=== PATIENT | male | born 1960 | race Caucasian/White ===

== ENCOUNTER 2020-12-02 18:26 | Inpatient (IN) | payer SELFPAY ==
[~2020-12-02] VITALS: Ht 170 cm; Wt 102.1 kg
[2020-12-02] MEDS ORDERED: ASPIRIN 81 MG CHEW (CHILDREN'S ASA) PO STA (18:31)
[2020-12-02] MEDS ORDERED: ONDANSETRON 4 MG/2 ML (SDV) Z0FRAN IVP STA (18:38)
[2020-12-02] MEDS ORDERED: meTOprolol 5 MG/5 ML (LOPRESSOR) VIAL IV STA (18:39)
[2020-12-02] MEDS ORDERED: HEParin 1000 UNIT/ML (10ML VIAL) FOR BOLUS IV ONE (18:41)
[2020-12-02 18:43] LABS: BASOPHILS % (AUTO) 1 % (0-10); EOSINOPHILS % (AUTO) 1 % (0-10); HEMATOCRIT 49 % (40-54); HEMOGLOBIN 17.2 G/DL (13.3-17.7); LYMPHOCYTES % (AUTO) 10 % (12-44); MEAN CORPUSCULAR HEMOGLOBIN 32 PG (25-34); MEAN CORPUSCULAR HGB CONC 35 G/DL (32-36); MEAN CORPUSCULAR VOLUME 91 FL (80-99); MEAN PLATELET VOLUME 9.6 FL (7.4-10.4); MONOCYTES % (AUTO) 5 % (0-12); NEUTROPHILS % (AUTO) 83 % (42-75); PLATELET COUNT 238 10^3/uL (130-400); WHITE BLOOD COUNT 18.3 10^3/uL (4.3-11.0)
[2020-12-02 18:44] LABS: BASOPHILS # (AUTO) 0.1 10^3/uL (0.0-0.1); EOSINOPHILS # (AUTO) 0.1 10^3/uL (0.0-0.3); LYMPHOCYTES # (AUTO) 1.9 X 10^3 (1.0-4.0); MONOCYTES # (AUTO) 0.9 X 10^3 (0.0-1.0); NEUTROPHILS # (AUTO) 15.2 X 10^3 (1.8-7.8)
[2020-12-02] MEDS ORDERED: HEParin DRIP 25000 UNIT/500ML 500 ML IV ONE (18:45)
[2020-12-02] MEDS ORDERED: NITROGLYCERIN 0.4 MG SL TABS BTL 25'S SL PRN (18:45)
--- NOTE | 2020-12-02 18:46 | ED Chest Pain ---
General Chief Complaint: Chest Pain Stated Complaint: CHEST PAIN; LT ARM PAIN Source: patient History of Present Illness Date Seen by Provider: Dec 02, 2020 Time Seen by Provider: 18:28 Initial Comments 60-year-old male presenting with chest pain and nausea. He does come in from chopping wood and was feeling this discomfort numbness chest around 1600. He was not improving with rest and when he tried to lay down to take a nap and was not going away. He came into the emergency department to be evaluated. He did have some nausea and felt like he was given throw up. He denies having a history of heart problems or high blood pressure in the past. He does not take any medications and does not follow with any primary provider. Allergies and Home Medications Allergies Coded Allergies: No Known Drug Allergies (Unverified , 12/02/20) Patient Home Medication List Home Medication List Reviewed: Yes Review of Systems Review of Systems Constitutional: No chills, No fever EENTM: No Symptoms Reported Respiratory: Shortness of Air Cardiovascular: See HPI Gastrointestinal: See HPI Genitourinary: No Symptoms Reported Musculoskeletal: no symptoms reported Skin: no symptoms reported Psychiatric/Neurological: No Symptoms Reported Past Kkgkxhx-Yygsim-Ujkpjl Hx Past Med/Social Hx: Reviewed Nursing Past Med/Soc Hx Patient Social History Alcohol Use: Denies Use Recreational Drug Use: No Smoking Status: Former Smoker 2nd Hand Smoke Exposure: No Recent Foreign Travel: No Contact w/Someone Who Travel: No Recent Hopitalizations: No Physical Abuse: No Sexual Abuse: No Mistreated: No Fear: No Seasonal Allergies Seasonal Allergies: No Past Medical History Surgeries: No Respiratory: No Cardiac: No Neurological: No Genitourinary: No Gastrointestinal: No Musculoskeletal: No Endocrine: No HEENT: No Cancer: No Psychosocial: No Integumentary: No Blood Disorders: No Adverse Reaction/Blood Tranf: No Physical Exam Vital Signs Vital Signs - First Documented 12/02/20 18:38 Temp 36.3 Pulse 93 Resp 19 B/P (MAP) 166/104 (124) Pulse Ox 97 Capillary Refill : Less Than 3 Seconds Height, Weight, BMI Height: '" Weight: lbs. oz. kg; BMI Method: General Appearance: WD/WN, Mild Distress HEENT: PERRL/EOMI, Pharynx Normal Neck: Full Range of Motion, Normal Inspection, Non Tender, Supple Respiratory: Chest Non Tender, Lungs Clear, Normal Breath Sounds, No Accessory Muscle Use, No Respiratory Distress Cardiovascular: Regular Rate, Rhythm, Normal Peripheral Pulses Gastrointestinal: No Pulsatile Mass, Soft Extremity: Normal Capillary Refill, No Pedal Edema Neurologic/Psychiatric: Alert, Oriented x3 Skin: Normal Color, Warm/Dry Progress/Results/Core Measures Results/Orders Lab Results Laboratory Tests Test 12/02/20 18:34 Range/Units My Orders Orders - CNYDI HAYS MD Cbc With Automated Diff (12/02/20 18:30) Magnesium (12/02/20 18:30) Chest 1 View Ap/Pa Only (12/02/20 18:30) Ekg Tracing (12/02/20 18:30) Comprehensive Metabolic Panel (12/02/20 18:30) Protime With Inr (12/02/20 18:30) Partial Thromboplastin Time (12/02/20 18:30) O2 (12/02/20 18:30) Monitor-Rhythm Ecg Trace Only (12/02/20 18:30) Ed Iv/Invasive Line Start (12/02/20 18:30) Lipase (12/02/20 18:30) Troponin I Fs (12/02/20 18:30) Probnp Fs (12/02/20 18:30) Aspirin Chewable Tablet (Baby Aspirin Ch (12/02/20 18:31) Nitroglycerin 0.4 Mg Btl 25's (Nitrostat (12/02/20 18:45) Ondansetron Injection (Zofran Injectio (12/02/20 18:38) Metoprolol Tartrate Injection (Lopressor (12/02/20 18:39) Heparin Drip 68929 Unit/500ml (Heparin (12/02/20 18:45) Heparin (Bolus Per Protocol) (Heparin (B (12/02/20 18:41) Ticagrelor Tablet (Brilinta Tablet) (12/02/20 18:51) Nitroglycerin Ointment (Nitrobid Ointme (12/02/20 19:00) Medications Given in ED Current Medications Medications Dose Ordered Sig/Lis Route Start Time Stop Time Status Last Admin Dose Admin Nitroglycerin 0.4 mg NEEDED PRN SL 12/02/20 18:45 12/02/20 18:39 0.4 MG Vital Signs/I&O 12/02/20 18:38 Temp 36.3 Pulse 93 Resp 19 B/P (MAP) 166/104 (124) Pulse Ox 97 Progress Progress Note : Progress Note electrocardiogram demonstrates a this ST elevation IA. Patient was given aspirin, heparin, Zofran, nitroglycerin, metoprolol. A call was placed to Dr. Victoria with cardiology and to activate the Medical Insurance Clerk. patient's pain was resolved with treatment. Dr. Victoria did want pt to get Brilinta prior to transfer as well. Initial ECG Impression Date: Dec 02, 2020 Initial ECG Impression Time: 18:32 Initial ECG Rate: 101 Initial ECG Rhythm: Normal Sinus Initial ECG Comparisson: No Previous ECG Available Comment sinus tachycardia with heart rate of 101 beats for minute. Acute lateral infarct and ST elevation for inferior infarct. KS interval 150 ms. QT interval 352 ms with a QTc interval 457 ms. No prior tracing available for comparison. Diagnostic Imaging Diagonstic Imaging: Xray Plain Films/CT/US/NM/MRI: chest Comments [facility], [place] NAME: [facility] REC#: [id number] PT STATUS: REG ER : 1960 PHYSICIAN: CYNDI HAYS MD ADMIT DATE: 12/02/20/ER FS Draft Date of Exam:12/02/20 CHEST 1 VIEW AP/PA ONLY INDICATION: Left-sided chest pain. EXAMINATION: Frontal chest was obtained at 6:40 p.m. FINDINGS: Heart and mediastinal silhouette are normal in appearance. The lungs are clear. There is no pneumothorax or pleural fluid. IMPRESSION: Negative chest. Dictated on workstation # [id number] Dict: 12/02/20 1859 Trans: 12/02/20 1904 [facility] [id number] Interpreted by: RODNEY CARRILLO MD Electronically signed by: Departure Communication (Admissions) Time/Spoke to Admitting Phy: 19:00 d/w Dr. Cervantes so that he was aware of pt for admit once Dr. Victoria finishes in the Medical Insurance Clerk with him. Time/Spoke to Consulting Phy: 18:46 d/w Dr. Victoria for cardiology and he requested Brilinta on the patient in addition to treatment so far. will take pt to cath lab nurse in [place]. Impression Primary Impression: STEMI (ST elevation myocardial infarction) Qualified Codes: I21.3 - ST elevation (STEMI) myocardial infarction of unspecified site Additional Impression: Chest pain Qualified Codes: I25.9 - Chronic ischemic heart disease, unspecified Disposition: 30 STILL A PATIENT Condition: Critical Admissions Decision to Admit Reason: Admit from ER (General) Decision to Admit/Date: Dec 02, 2020 Time/Decision to Admit Time: 18:46 Departure-Patient Inst. Referrals: NO,LOCAL PHYSICIAN (PCP/Family) Primary Care Physician CYNDI HAYS MD Dec 02, 2020 18:46
[2020-12-02] MEDS ORDERED: TICAGRELOR 90 MG TABLET (BRILINTA) PO STA (18:51)
[2020-12-02 18:55] LABS: BAND NEUTROPHILS 3 %; LYMPHOCYTES % (MANUAL) 9 %; MONOCYTES % (MANUAL) 3 %; NEUTROPHILS % (MANUAL) 85 %
[2020-12-02 18:56] LABS: BASOPHILS % (MANUAL) 0 %; EOSINOPHILS % (MANUAL) 0 %; PROTHROMBIN TIME PATIENT 13.1 SEC (12.2-14.7); RBC MORPH NORMAL; TOXIC GRANULATION/VACUOLAZATIO 2+
[2020-12-02] MEDS ORDERED: NITROGLYCERIN 2% OINT 1 GM UNIT DOSE PACKET TOP ONE (19:00)
[2020-12-02 19:02] LABS: SODIUM 135 MMOL/L (135-145)
[2020-12-02 19:03] LABS: ALANINE AMINOTRANSFERASE 32 U/L (0-55); ALBUMIN 4.8 GM/DL (3.2-4.5); ALKALINE PHOSPHATASE 94 U/L (40-136); BILIRUBIN,TOTAL 1.8 MG/DL (0.1-1.0); BUN/CREATININE RATIO 15; CALCIUM 9.6 MG/DL (8.5-10.1); CARBON DIOXIDE 24 MMOL/L (21-32); CHLORIDE 98 MMOL/L (98-107); CREATININE SERUM 0.82 MG/DL (0.60-1.30); GFR ESTIMATED > 60; GLUCOSE 250 MG/DL (70-105); LIPASE 17 U/L (8-78); MAGNESIUM 1.8 MG/DL (1.6-2.4); POTASSIUM 3.5 MMOL/L (3.6-5.0); TOTAL PROTEIN 8.1 GM/DL (6.4-8.2)
--- NOTE | 2020-12-02 19:05 | Diagnostic Imaging Report ---
INDICATION: Left-sided chest pain. EXAMINATION: Frontal chest was obtained at 6:40 p.m. FINDINGS: Heart and mediastinal silhouette are normal in appearance. The lungs are clear. There is no pneumothorax or pleural fluid. IMPRESSION: Negative chest. Dictated by: Dictated on workstation # [id number]
[2020-12-02] MEDS ORDERED: MIDAZOLAM 5 MG/5 ML (VERSED) VIAL ONE (19:12)
[2020-12-02] MEDS ORDERED: LIDOCAINE 1% INJ 20 ML 20 ML VIAL ONE (19:12)
[2020-12-02] MEDS ORDERED: NITRO DRIP 25000 MCG/D5W 250 ML IV ONE (19:13)
[2020-12-02] MEDS ORDERED: NS IV 1000 ML 1,000 ML ONE (19:13)
[2020-12-02] MEDS ORDERED: HEParin (CATH LAB) 2,000 ML IV ONE (19:13)
[2020-12-02] MEDS ORDERED: HEParin 1000 UNIT/ML (10ML VIAL) FOR BOLUS ONE (19:13)
[2020-12-02] MEDS ORDERED: fentaNYL INJECTION 100 MCG/2 ML AMP ONE (19:13)
[2020-12-02] MEDS ORDERED: EPTIFIBATIDE BOLUS 20 ML IV ONE (20:24)
[2020-12-02] MEDS ORDERED: NS (IVPB) 250 ML ONE (20:34)
[2020-12-02] MEDS ORDERED: niCARdipine 25 MG/10 ML (CARDENE) AMP IV ONE (20:34)
[2020-12-02] MEDS ORDERED: EPTIFIBATIDE DRIP 100 ML IV ONE (20:38)
--- NOTE | 2020-12-02 21:27 | Coronary Angiography & PCI ---
Coronary Angiography & PCI DATE OF PROCEDURE: 12/02/20 INDICATION: acute inferior lateral STEMI PREOPERATIVE DIAGNOSIS: acute inferior lateral STEMI POSTOPERATIVE DIAGNOSIS: acute inferior lateral STEMI, PCI to left circumflex artery and mid RCA. HISTORY: this is a 60-year-old gentleman who has history of hypertension and hyperlipidemia. He denies diabetes and smoking. Chest pain for 3 hours. EKG showed inferior lateral STEMI. primary PCI was recommended. PROCEDURES PERFORMED: 1.Coronary angiography. 2.Left heart catheterization. 3.PCI to the left circumflex artery with drug-eluting stent. 4. PCI to the mid RCA with drug-eluting stent. COMPLICATIONS: None. SPECIMENS: None. ESTIMATED BLOOD LOSS: 10 mL ANESTHESIA: Conscious sedation ANTICOAGULATION: IV heparin CONTRAST: 210 mL. FLUOROSCOPY: 22.9 minutes. FLOUROSCOPY DOSE: 2602 mgy. PROCEDURE DETAILS: The patient is a 60 male and was brought to the prestressed concrete laborer after informed consent was taken. All the risks and complications were explained in detail; this included the risk of bleeding, vascular damage, stroke, IN and even . The patient was draped and prepped in the usual sterile fashion. Access was gained in the right femoral artery with a 6 Divehi sheath. Coronary angiography and left heart catheterization done with a JR4, JL4 and pigtail catheter. FINDINGS: 1.Left main: Patent. 2.LAD: athero-ectasia with sgxa-kn-rancaujl diffuse disease. 3.Left circumflex artery: significant athero-ectasia with aneurysmal segments. Mid left circumflex artery has subtotal occlusion with significant clot burden. 4.RCA: diffuse athero-ectasia with severe long mid RCA stenosis. 5.Left heart catheterization: LVEDP 17 mmHg. LVEF 40 percent. RECOMMENDATIONS: 1. PCI to the mid left circumflex artery is recommended. 2. PCI to the mid RCA is recommended. INTERVENTION DETAILS: EBU 4.0 guide catheter, whisper extra-support wire and IV heparin. Patient was given aspirin and Brilinta bolus prior to the angiogram. ACT was 229 seconds. We crossed the lesion in the mid left circumflex artery with the whisper wire. The tip of the wire was placed in the distal segment. Balloon angioplasty was done with a 2.0 x 12mm balloon. Door to balloon time of 32 minutes. significant clot burden therefore aspiration thrombectomy was done. We then placed a 3.5 x 23 mm Xience Kaylee drug-eluting stent at 16 yuri. IC Nicardipine 500 was also given. double bolus Integrilin followed by infusion was started. JR4 guide catheter, whisper extra-support wire. Significant tortuosity in the proximal RCA. We crossed the lesion with the wire however were not able to cross with the stent. while trying to advance the stent, the wire came back into the aorta. We therefore changed the guide to AR 1. We took an new whisper wire. The lesion was crossed. The tip was placed in the distal artery. Balloon dilatation was done with a 2.5 x 20 mm balloon. We then placed a stent 3.5 x 33 mm Xience Kaylee SINTIA at 16 yuri. Excellent results. minx closure to the RFA.Patient tolerated the procedure well and did not have any complications. He was transferred to the ICU with stable hemodynamics. CONCLUSIONS: 1. acute inferior lateral STEMI with PCI to the left circumflex artery and mid RCA with drug-eluting stents. 2. Significant aneurysmal segments noted. Will likely require oral anticoagulation. 3. Currently on aspirin and Brilinta. Shireen Victoria MD, FACP, FACC, [facility] Interventional Cardiology Eleanor VICTORIA MD Dec 02, 2020 21:27
--- NOTE | 2020-12-02 21:27 | Consultation-Cardiology ---
HPI-Cardiology Cardiology Consultation: Date of Consultation 12/02/20 Date of Admission Attending Physician Eleanor Victoria MD Admitting Physician Susannah,Local Physician Consulting Physician Eleanor VICTORIA MD HPI: Time Seen by a Provider: 21:26 Chief Complaint: chest pain this is a 60-year-old gentleman with history of hypertension and hyperlipidemia. He presented with 3 hour history of chest pain associated with nausea and left arm numbness. Moderate intensity. Did not improve with rest. No shortness of breath. Remote history of smoking. Review of Systems-Cardiology Review of Systems Constitutional: As described under HPI; No As described under HPI, No no sympt oms reported, No chills, No fever, No lightheadedness Eyes: No As described under HPI, No no symptoms reported, No blindness, No blurred vision, No contact lenses, No drainage, No decreased acuity, No foreign body sensation, No pain, No vision change Ears/Nose/Throat: No As described under HPI, No no symptoms reported, No chronic hearing loss, No ear discharge, No ear pain, No nasal drainage, No ulcerations Respiratory: No no symptoms reported; As described under HPI; No As described under HPI, No cough, No orthopnea, No shortness of breath, No SOB with excertion Cardiovascular: No no symptoms reported; As described under HPI; No As described under HPI; chest pain; No edema, No irregular heart rate, No lightheadedness, No palpitations Gastrointestinal: No no symptoms reported, No As described under HPI, No abdomen distended, No abdominal pain, No blood streaked bowels, No constipation, No diarrhea, No nausea, No vomiting; nausea/vomiting/diarrhea; No stool coloration changes Genitourinary: No As described under HPI, No burning, No dysuria, No discharge, No frequency, No flank pain, No hematuria, No urgency Skin: No rash, No skin related problems, No ulcerations Psychiatric/Neurological: No anxiety, No depression, No seizure, No focal weakness, No syncope Hematologic: No bleeding abnormalities KAO-Utawvn-Dbgdtq Hx Patient Social History Alcohol Use: Denies Use Recreational Drug Use: No Smoking Status: Former Smoker 2nd Hand Smoke Exposure: No Recent Foreign Travel: No Recent Infectious Disease Expo: No Hospitalization with Isolation: Denies Past Medical History PMH As described under Assessment. Allergies and Home Medications Allergies Coded Allergies: No Known Drug Allergies (Unverified , 12/02/20) Patient Home Medication List Home Medication List Reviewed: Yes Physical Exam-Cardiology Physical Exam Vital Signs/I&O 12/02/20 12/02/20 18:38 19:05 Temp 36.3 Pulse 93 107 Resp 19 21 B/P (MAP) 166/104 (124) 135/98 Pulse Ox 97 94 Capillary Refill : Less Than 3 Seconds Constitutional: appears stated age, AAO x 3; No apparent distress; well- developed, well-nourished HEENT: PERRL; No discharge; hearing is well preserved, oral hygience is good; No ulceration, No xanthelasmas are seen Neck: No carotid bruit; carotid pulses are 2 + bilaterally Respiratory: chest is bilaterally symmetric, lungs clear to auscultation Cardiovascular: regular rate-rhythm, S1 and S2 Gastrointestinal: soft, audible bowel sounds; No spleenomegaly Rectal: deferred Extremities: No clubbing, No cyanosis, No significant edema Neurologic/Psychiatric: no motor/sensory deficits, alert, normal mood/affect, oriented x 3, power is 5/5 both on sides Skin: normal color; No rash, No ulcerations Data Review Labs Laboratory Tests 12/02/20 18:34: White Blood Count 18.3H, Red Blood Count 5.38, Hemoglobin 17.2, Hematocrit 49, Mean Corpuscular Volume 91, Mean Corpuscular Hemoglobin 32, Mean Corpuscular Hemoglobin Concent 35, Red Cell Distribution Width 12.3, Platelet Count 238, Mean Platelet Volume 9.6, Immature Granulocyte % (Auto) 0, Neutrophils (%) (Auto) 83H, Lymphocytes (%) (Auto) 10L, Monocytes (%) (Auto) 5, Eosinophils (%) (Auto) 1, Basophils (%) (Auto) 1, Neutrophils # (Auto) 15.2H, Lymphocytes # (Auto) 1.9, Monocytes # (Auto) 0.9, Eosinophils # (Auto) 0.1, Basophils # (Auto) 0.1, Immature Granulocyte # (Auto) 0.1, Neutrophils % (Manual) 85, Lymphocytes % (Manual) 9, Monocytes % (Manual) 3, Eosinophils % (Manual) 0, Basophils % (Manual) 0, Band Neutrophils 3, Toxic Granulation 2+, Dohle Bodies SLIGHT, Blood Morphology Comment NORMAL, Prothrombin Time 13.1, INR Comment 1.0, Activated Partial Thromboplast Time 26, Sodium Level 135, Potassium Level 3.5L, Chloride Level 98, Carbon Dioxide Level 24, Anion Gap 13, Blood Urea Nitrogen 12, Creatinine 0.82, Estimat Glomerular Filtration Rate > 60, BUN/Creatinine Ratio 15, Glucose Level 250H, Calcium Level 9.6, Corrected Calcium , Magnesium Level 1.8, Total Bilirubin 1.8H, Aspartate Amino Transf (AST/SGOT) 30, Alanine Aminotransferase (ALT/SGPT) 32, Alkaline Phosphatase 94, Troponin I < 0.30, Pro-B-Type Natriuretic Peptide 71.7, Total Protein 8.1, Albumin 4.8H, Lipase 17 ECG Impression ECG Initial ECG Rhythm: Normal Sinus Initial ECG Impression: Acute AK A/P-Cardiology Assessment/Admission Diagnosis acute inferior lateral STEMI, Hyperlipidemia, Hypertension Plan acute inferior lateral STEMI, coronary angiography revealed significant athero- ectasia/aneurysmal dilatation in all 3 vessels. Culprit vessel is left circumflex artery in the midsegment with significant thrombus burden. Treated with aspiration thrombectomy and drug-eluting stent. mid RCA was also treated with a drug-eluting stent. Currently on aspirin and Brilinta. However patient would likely require oral anticoagulation as well. Will defer to Dr. Hoffman. Hypertension: Beta willie and lisinopril. hyperlipidemia: High-dose statin therapy. Dr. Hoffman to take over cardiology service tomorrow Thank you for your consultation. Please call me if you have any questions. Shireen Victoria MD, FACP, FACC, FSCAI, FHRS, CCDS Interventional Cardiology Cardiac Electrophysiology Vascular Medicine and Endovascular Interventions Clinical Quality Measures AMI/AHF: ASA po Prior to arrival: Eleanor Nava MD Dec 02, 2020 21:27
[2020-12-02] MEDS ORDERED: PATIENT MAY USE OWN MEDS, ALL PO SCH (21:30)
--- NOTE | 2020-12-02 21:31 | Cardiac Procedure Note-CS/ASA ---
Pre-Procedure Note Pre-Op Procedure Note H&P Reviewed The H&P was reviewed, patient examined and no changes noted. Date H&P Reviewed: Dec 02, 2020 Time H&P Reviewed: 19:45 Conscious Sedation Pre-Proced Time 19:45 ASA Score 3 For ASA 3 and 4: Consider anesthesia and medical clearance. Also, for patients with a history of failed moderate sedation consider anesthesia. Airway Lungs Heart ASA score ASA 1: a normal healthy patient ASA 2: a patient with a mild systemic disease (mid diabetes, controlled hypertension, obesity ASA 3: a patient with a severe systemic disease that limits activity (angina, COPD, prior Myocardial infarction) ASA 4: a patient with an incapacitating disease that is a constant threat to life (CHF, renal failure) ASA 5: a moribund patient not expected to survive 24 hrs. (ruptured aneurysm) ASA 6: a declared brain- patient whose organs are being harvested. For emergent operations, add the letter E after the classification Mallampati Classification Grade 1 Sedation Plan Analgesia, Amnesia, Plan communicated to team members, Discussed options with patient/fam, Discussed risks with patient/fam The patient is an appropriate candidate to undergo the planned procedure, sedation, and anesthesia. The patient immediately re-assessed prior to indication. Eleanor KENNY MD Dec 02, 2020 21:31
[2020-12-02] MEDS: NS IV 1000 ML 1,000 ML IV SCH (23:13)
--- NOTE | 2020-12-03 01:06 | NUR ---
THIS RN NOTIFIED TELE-ICU OF PATIENT'S INCREASING BP, SBP IN 160-170'S AND DBP IN 110'S. NEW ORDER RECEIVED, SEE EMAR AND ORDER HX.
[2020-12-03] MEDS ORDERED: morphine INJ 10 MG/ML 1ML (SYR OR VIAL) IVP STA (01:20)
--- NOTE | 2020-12-03 02:55 | NUR ---
THIS RN NOTIFIED TELE-ICU OF PATIENT'S INCREASING BP, SBP IN 160-170'S AND DBP IN 110'S. NEW ORDER RECEIVED, SEE EMAR AND ORDER HX.
[2020-12-03] MEDS ORDERED: meTOproloL SUCCINATE 50 MG (TOPROL XL) TAB PO ONE (02:59)
[2020-12-03] MEDS: meTOproloL SUCCINATE 50 MG (TOPROL XL) TAB PO SCH ×2 (03:05→09:06)
[2020-12-03 03:23] LABS: BASOPHILS # (AUTO) 0.1 10^3/uL (0.0-0.1); BASOPHILS % (AUTO) 1 % (0-10); EOSINOPHILS % (AUTO) 0 % (0-10); HEMATOCRIT 46 % (40-54); HEMOGLOBIN 15.3 g/dL (13.3-17.7); LYMPHOCYTES # (AUTO) 2.3 10^3/uL (1.0-4.0); LYMPHOCYTES % (AUTO) 20 % (12-44); MEAN CORPUSCULAR HEMOGLOBIN 31 pg (25-34); MEAN CORPUSCULAR HGB CONC 33 g/dL (32-36); MEAN CORPUSCULAR VOLUME 94 fL (80-99); MEAN PLATELET VOLUME 9.8 fL (9.0-12.2); MONOCYTES # (AUTO) 0.9 10^3/uL (0.0-1.0); MONOCYTES % (AUTO) 8 % (0-12); NEUTROPHILS # (AUTO) 7.9 10^3/uL (1.8-7.8); NEUTROPHILS % (AUTO) 71 % (42-75); PLATELET COUNT 203 10^3/uL (130-400); WHITE BLOOD COUNT 11.1 10^3/uL (4.3-11.0)
[2020-12-03 03:44] LABS: CHLORIDE 101 MMOL/L (98-107)
[2020-12-03 03:45] LABS: POTASSIUM 3.8 MMOL/L (3.6-5.0); SODIUM 135 MMOL/L (135-145)
[2020-12-03 03:46] LABS: CALCIUM 8.8 MG/DL (8.5-10.1); GLUCOSE 317 MG/DL (70-105)
[2020-12-03 03:48] LABS: CARBON DIOXIDE 18 MMOL/L (21-32)
[2020-12-03 03:50] LABS: CREATININE SERUM 0.95 MG/DL (0.60-1.30); GFR ESTIMATED > 60; PHOSPHORUS 3.6 MG/DL (2.3-4.7)
[2020-12-03 03:51] LABS: BUN/CREATININE RATIO 11
[2020-12-03 03:52] LABS: MAGNESIUM 1.9 MG/DL (1.6-2.4)
--- NOTE | 2020-12-03 06:03 | Pulmonary Consultation ---
History of Present Illness History of Present Illness Date Seen by Provider: Dec 03, 2020 Time Seen by Provider: 06:02 Date of Admission Allergies and Home Medications Allergies Coded Allergies: No Known Drug Allergies (Unverified , 12/02/20) Past Aoypmue-Fkjrcx-Pvsdej Hx Past Med/Social Hx: Reviewed Nursing Past Med/Soc Hx Patient Social History Alcohol Use: Denies Use Recreational Drug Use: No Smoking Status: Former Smoker 2nd Hand Smoke Exposure: No Recent Foreign Travel: No Contact w/Someone Who Travel: No Recent Infectious Disease Expo: No Recent Hopitalizations: No Physical Abuse: No Sexual Abuse: No Mistreated: No Fear: No Seasonal Allergies Seasonal Allergies: No Past Medical History Surgeries: No Respiratory: No Cardiac: No Neurological: No Genitourinary: No Gastrointestinal: No Musculoskeletal: No Endocrine: No HEENT: No Cancer: No Psychosocial: No Integumentary: No Blood Disorders: No Adverse Reaction/Blood Tranf: No Review of Systems Time Seen by Provider: 06:02 Sepsis Event Evaluation Height, Weight, BMI Height: '" Weight: lbs. oz. kg; BMI Method: Exam Exam Vital Signs Date Time Temp Pulse Resp B/P (MAP) Pulse Ox O2 Delivery O2 Flow Rate FiO2 12/03/20 04:00 92 18 147/89 (108) 92 Room Air 12/03/20 04:00 36.6 12/03/20 03:00 86 18 165/102 (123) 98 Room Air 12/03/20 02:00 79 18 155/104 (121) 98 Room Air 12/03/20 01:05 36.0 12/03/20 01:00 83 16 140/94 (109) 96 Room Air 12/03/20 00:00 75 16 139/102 (114) 96 Room Air 12/02/20 23:06 36.6 12/02/20 23:00 81 16 139/102 (114) 93 Room Air 12/02/20 22:00 78 16 132/91 (105) 96 Room Air 12/02/20 22:00 95 Room Air 12/02/20 21:56 74 12/02/20 21:55 35.7 79 16 112/91 (98) 95 Room Air 12/02/20 19:05 107 21 135/98 94 12/02/20 18:38 36.3 93 19 166/104 (124) 97 I & O 12/03/20 06:59 Intake Total 480 ml Output Total 1050 ml Balance -570 ml Height & Weight Height: '" Weight: lbs. oz. kg; BMI Method: General Appearance: WD/WN, Mild Distress HEENT: PERRL/EOMI, Pharynx Normal Neck: Full Range of Motion, Normal Inspection, Non Tender, Supple Respiratory: Chest Non Tender, Lungs Clear, Normal Breath Sounds, No Accessory Muscle Use, No Respiratory Distress Cardiovascular: Regular Rate, Rhythm, Normal Peripheral Pulses Capillary Refill: Greater Than 3 Seconds Extremity: Normal Capillary Refill, No Pedal Edema Neurologic/Psychiatric: Alert, Oriented x3 Skin: Normal Color, Warm/Dry Results Lab Laboratory Tests 12/02/20 18:34 12/03/20 03:12 Assessment/Plan Assessment/Plan STEMI s/p cath with stent placement -Cardiology following HTN -Lopressor -Lisinopril -Add PRN hydralazine Leukocytosis - probably reactive Metabolic anion gapped acidosis - monitor -Check ALPA MOORE DO Dec 03, 2020 06:02
[2020-12-03] MEDS ORDERED: hydrALAZINE (APESOLINE) 20 MG/ML VIAL IV PRN (06:15)
--- NOTE | 2020-12-03 07:40 | Diagnostic Imaging Report ---
INDICATION: STEMI, chest pain COMPARISON: 12/02/2020 FINDINGS: Single view of the chest demonstrates slight stable cardiac enlargement. Lungs are clear. There is no pneumothorax. The osseous structures are unremarkable. IMPRESSION: Stable cardiac enlargement without pulmonary edema or acute infiltrate Dictated by: Dictated on workstation # [id number]
[2020-12-03] MEDS ORDERED: LACTATED RINGERS 1,000 ML IV ONE (08:18)
[2020-12-03] MEDS ORDERED: LACTATED RINGERS 1,000 ML IV SCH (08:30)
[2020-12-03] MEDS ORDERED: meTOproloL SUCCINATE 50 MG (TOPROL XL) TAB PO SCH (09:00)
[2020-12-03] MEDS ORDERED: ASPIRIN E.C. 81 MG (ECOTRIN) TAB PO SCH (09:00)
[2020-12-03] MEDS ORDERED: lisINopril 10 MG (PRINIVIL) TABLET PO SCH (09:00)
[2020-12-03] MEDS ORDERED: TICAGRELOR 90 MG TABLET (BRILINTA) PO SCH (09:00)
[2020-12-03] MEDS: NS IV 1000 ML 1,000 ML IV SCH (09:06)
[2020-12-03] MEDS ORDERED: CLOPIDOGREL 300 MG (PLAVIX) TABLET PO ONE (11:00)
--- NOTE | 2020-12-03 11:02 | Cardiology Discharge Summary ---
Discharge Summary Hospital Course Problems Reviewed?: Yes Hospital Course Date of Admission: Dec 02, 2020 at 22:02 Admission Diagnosis : Family Physician/Provider: No,Local Physician Date of Discharge: 12/03/20 Discharge Diagnosis: [ Acute ST elevation myocardial infarction Coronary artery disease Hypertension Hyperlipidemia] Hospital Course: [ Acute ST elevation myocardial infarctions status post emergency cardiac catheterization and deployment of [address] Victoria on December 02, 2020, had a Kaylee 3.5 x 23 in the circumflex artery and 3.5 x 33 in the right coronary artery with excellent results, required nicardipine due to slow flow post intervention. Doing well at this time, no chest pain, EKG returned to normal, groin is healing well, educated in length about compliance with medication, does not have prescription plan, I'll switch him to Plavix due to the cost Hypertension, poorly controlled, started on lisinopril and Toprol, continue to monitor Hyperlipidemia, started on Lipitor 80 mg daily I will arrange for follow-up as an outpatient] Labs and Pending Lab Test: Laboratory Tests 12/02/20 18:34: White Blood Count 18.3H, Red Blood Count 5.38, Hemoglobin 17.2, Hematocrit 49, Mean Corpuscular Volume 91, Mean Corpuscular Hemoglobin 32, Mean Corpuscular Hemoglobin Concent 35, Red Cell Distribution Width 12.3, Platelet Count 238, Mean Platelet Volume 9.6, Immature Granulocyte % (Auto) 0, Neutrophils (%) (Auto) 83H, Lymphocytes (%) (Auto) 10L, Monocytes (%) (Auto) 5, Eosinophils (%) (Auto) 1, Basophils (%) (Auto) 1, Neutrophils # (Auto) 15.2H, Lymphocytes # (Auto) 1.9, Monocytes # (Auto) 0.9, Eosinophils # (Auto) 0.1, Basophils # (Auto) 0.1, Immature Granulocyte # (Auto) 0.1, Neutrophils % (Manual) 85, Lymphocytes % (Manual) 9, Monocytes % (Manual) 3, Eosinophils % (Manual) 0, Basophils % (Manual) 0, Band Neutrophils 3, Toxic Granulation 2+, Dohle Bodies SLIGHT, Blood Morphology Comment NORMAL, Prothrombin Time 13.1, INR Comment 1.0, Activated Partial Thromboplast Time 26, Sodium Level 135, Potassium Level 3.5L, Chloride Level 98, Carbon Dioxide Level 24, Anion Gap 13, Blood Urea Nitrogen 12, Creatinine 0.82, Estimat Glomerular Filtration Rate > 60, BUN/Creatinine Ratio 15, Glucose Level 250H, Calcium Level 9.6, Corrected Calcium , Magnesium Level 1.8, Total Bilirubin 1.8H, Aspartate Amino Transf (AST/SGOT) 30, Alanine Aminotransferase (ALT/SGPT) 32, Alkaline Phosphatase 94, Troponin I < 0.30, Pro-B-Type Natriuretic Peptide 71.7, Total Protein 8.1, Albumin 4.8H, Lipase 17 12/03/20 03:12: White Blood Count 11.1H, Red Blood Count 4.88, Hemoglobin 15.3, Hematocrit 46, Mean Corpuscular Volume 94, Mean Corpuscular Hemoglobin 31, Mean Corpuscular Hemoglobin Concent 33, Red Cell Distribution Width 12.3, Platelet Count 203, Mean Platelet Volume 9.8, Immature Granulocyte % (Auto) 0, Neutrophils (%) ( Auto) 71, Lymphocytes (%) (Auto) 20, Monocytes (%) (Auto) 8, Eosinophils (%) (Auto) 0, Basophils (%) (Auto) 1, Neutrophils # (Auto) 7.9H, Lymphocytes # (Auto) 2.3, Monocytes # (Auto) 0.9, Eosinophils # (Auto) 0.0, Basophils # (Auto) 0.1, Immature Granulocyte # (Auto) 0.0, Sodium Level 135, Potassium Level 3.8, Chloride Level 101, Carbon Dioxide Level 18L, Anion Gap 16H, Blood Urea Nitrogen 10, Creatinine 0.95, Estimat Glomerular Filtration Rate > 60, BUN/Creatinine Ratio 11, Glucose Level 317H, Calcium Level 8.8, Magnesium Level 1.9, Troponin I 7.678*H, Phosphorus Level 3.6 12/03/20 07:25: Lactic Acid Level 2.43*H 12/03/20 09:36: Lactic Acid Level 3.67*H Home Meds Active Toprol Xl (Metoprolol Succinate) 100 Mg Tab.er.24h 100 Mg PO DAILY Aspirin EC (Aspirin) 81 Mg Tablet.dr 81 Mg PO DAILY Lisinopril 10 Mg Tablet 10 Mg PO DAILY@0900 Atorvastatin Calcium 80 Mg Tablet 80 Mg PO HS Clopidogrel (Clopidogrel Bisulfate) 75 Mg Tablet 75 Mg PO DAILY Assessment/Pt DC Instructions Arrangement for follow-up as an outpatient Educated in length about compliance with medication taking aspirin and Plavix Discharge Physical Examination Allergies: Coded Allergies: No Known Drug Allergies (Unverified , 12/02/20) General Appearance: No Apparent Distress, WD/WN HEENT: PERRL/EOMI, TMs Normal, Normal ENT Inspection, Pharynx Normal Respiratory: Chest Non Tender, Lungs Clear, Normal Breath Sounds, No Accessory Muscle Use, No Respiratory Distress Cardiovascular: Regular Rate, Rhythm, No Edema, No Gallop, No JVD, No Murmur, Normal Peripheral Pulses Gastrointestinal: Normal Bowel Sounds, No Organomegaly, No Pulsatile Mass Extremity: Normal Capillary Refill, Normal Inspection Skin: Normal Color, Warm/Dry Neurologic/Psychiatric: Alert, Oriented x3 Clinical Quality Measures Admission Status Admission Status: Inpatient Order (span 2 midnights) Reason for Inpatient Admission: Acute ST elevation myocardial infarct AMI/AHF: ASA po Prior to arrival: No DVT/VTE Risk/Contraindication: Risk Factor Score Per Nursin RFS Level Per Nursing on Admit: 4+=Very High ALFONZO LEMOS MD Dec 03, 2020 11:02
[2020-12-03] MEDS ORDERED: ATOR80TA76 PO (11:05)
[2020-12-03] MEDS ORDERED: CLOP75TA28 PO (11:05)
[2020-12-03] MEDS ORDERED: LISI10TA2 PO (11:05)
[2020-12-03] MEDS ORDERED: METO100T6 PO (11:05)
[2020-12-03] MEDS ORDERED: ASPI-1238 PO (11:05)
--- NOTE | 2020-12-03 12:12 | NUR ---
Spoke with Dr. Burnett regarding lactic acids and conversation with Dr. Hoffman. Per Dr. Burnett, pt OK to discharge home per Dr. Hoffman medication recommendations.
--- NOTE | 2020-12-03 13:00 | NUR ---
PT AMBULATED AROUND THE UNIT. GROIN ASSESSED WITH NO COMPLICATIONS NOTED. DRESSING TO GROIN SITE REMOVED AND BANDAID APPLIED.
[2020-12-03 14:34] VITALS: BP 144/100
--- NOTE | 2020-12-03 14:34 | NUR ---
PATIENT DISCHARGED TO HOME WITH ALL PERSONAL BELONGINGS. PT HAS NO COMPLAINTS OR QUESTIONS/CONCERNS AT DISCHARGE. ALL INFORMATION GIVEN TO PATIENT. EDUCATED REGARDING GROIN MANAGEMENT AT HOME, VOICED UNDERSTANDING. VERIFIED WITH [facility] IN [place] THAT THEY HAVE THE CORRECT RX FOR PATIENT. HE STATES HE WILL GO PICK THEM UP TODAY. PT VOICES NO FURTHER CONCERNS. TRANSPORTED VIA W/C TO FRONT ENTRANCE WHERE FAMILY WAS WAITING. PT AMBULATED TO VEHICLE WITHOUT DIFFICULTIES.
[2020-12-04] MEDS ORDERED: CLOPIDOGREL 75 MG (PLAVIX) TABLET PO SCH (09:00)
== END 2020-12-03 14:34 | disposition home or self-care (01) | DRG 247 ==
LOC: ER FS 18:29 → CATH 19:41 → ICU 22:00 → CATH 22:02 → ICU 22:02
PROVIDERS: ADMIT Internal Medicine Interventional Cardiology; ATTEND Internal Medicine Interventional Cardiology
PROC: 027135Z Dilation of Coronary Artery, Two Arteries with Two Drug-eluting Intraluminal Devices, Percutaneous Approach (ICD-10-PCS; principal; 2020-12-02)
PROC: 02C03ZZ Extirpation of Matter from Coronary Artery, One Artery, Percutaneous Approach (ICD-10-PCS; 2020-12-02)
PROC: 4A023N7 Measurement of Cardiac Sampling and Pressure, Left Heart, Percutaneous Approach (ICD-10-PCS; 2020-12-02)
PROC: B2151ZZ Fluoroscopy of Left Heart using Low Osmolar Contrast (ICD-10-PCS; 2020-12-02)
DX: I21.19 ST elevation (STEMI) myocardial infarction involving other coronary artery of inferior wall (principal); E87.2 Acidosis; I25.10 Atherosclerotic heart disease of native coronary artery without angina pectoris; I10 Essential (primary) hypertension; E78.5 Hyperlipidemia, unspecified; Z87.891 Personal history of nicotine dependence
CPT/HCPCS: 36415; 71045; 80048; 80053; 83605; 83690; 83735; 83880; 84100; 84484; 85007; 85025; 85027; 85610; 85730; 93005; 93041; 93306; 93458

== ENCOUNTER 2021-12-29 08:50 | Outpatient (RCR) | payer SELFPAY ==
[2021-12-28 09:15] VITALS: BP 159/96
[~2021-12-29] VITALS: Ht 172.7 cm; Wt 102.1 kg
[~2021-12-29 08:50] MED LIST: ASPI-1238 PO; ATOR80TA76 PO; CLOP75TA28 PO; LISI10TA25 PO; METO100T6 PO
[2021-12-29 09:25] VITALS: BP 144/92
== END 2021-12-29 10:00 | disposition home or self-care (01) ==
LOC: SDC 08:50
PROVIDERS: ATTEND Surgery
DX: Z01.89 Encounter for other specified special examinations (principal)
CPT/HCPCS: 99212

== ENCOUNTER → 2022-03-05 | Outpatient (CLI) | payer OTHER ==
[~2022-03-05] VITALS: Ht 170 cm; Wt 70.0 kg
[~2022-03-05] MED LIST changes: +CATHETER FLUSH 10 ML SYR IVP PRN; +REGADENOSON 0.4 MG/5 ML SYR (LEXISCAN) IV ONE
[2022-03-05 13:09] VITALS: BP 116/78
--- NOTE | 2022-03-05 15:11 | Cardiology Stress Test Report ---
Stress Test Report Date of Procedure/Referring: Date of Procedure: Mar 05, 2022 PCP Alfonzo Hoffman MD Admitting Physician No,Local Physician Indications: CP Baseline Heart Rate: 71 Baseline Blood Pressure: Blood Pressure Systolic: 116 Blood Pressure Diastolic: 78 Vital Signs Date Time Temp Pulse Resp B/P (MAP) Pulse Ox O2 Delivery O2 Flow Rate FiO2 03/05/22 13:09 71 116/78 (91) Baseline Vital Signs Vital Signs Date Time Temp Pulse Resp B/P (MAP) Pulse Ox O2 Delivery O2 Flow Rate FiO2 03/05/22 13:09 71 116/78 (91) Baseline EKG: Baseline EKG: NSR Summary: After explaining the procedure and details to the patient, he signed the consent and was brought to the stress nuclear laboratory. Patient exercised on standard Jackson protocol, EKG, heart rate and blood pressure were monitored continuously, resting and stress doses of radio tracer were injected, imaging was acquired and reviewed in the short axis, horizontal long axis and vertical long axis views Patient was able to exercise for a total of 7 minutes on Jackson protocol, METs 7.1 Maximum heart rate 141 Maximum blood pressure 205/95 Stress EKG, Minimal nondiagnostic changes Recovery EKG, Return to baseline TID: 1.01 SSS: 11 SDS: 3 EF: 65 Conclusion: 1. Good exercise tolerance for 7 minutes on standard Jackson protocol, 7.1 METS achieving 86 percent of maximal expected heart rate 2. Appropriate heart rate response to exercise with hypertensive response to exercise with peak blood pressure 205/95 return to baseline during recovery 3. Minimal nondiagnostic EKG changes with exercise return to baseline during recovery 4. Diaphragmatic attenuation with decreased uptake involving the basal to mid inferior wall and inferoapical segment mainly fixed with subtle reversibility most probably the the defect is secondary to extracardiac attenuation 5. Normal left ventricular size with normal contractility, ejection fraction 65% ALFONZO HOFFMAN MD Mar 05, 2022 15:11
== END ==
LOC: CARD 11:00
PROVIDERS: ATTEND Internal Medicine Cardiovascular Disease
DX: I11.9 Hypertensive heart disease without heart failure (principal)
CPT/HCPCS: 78452; 93017; 93306; A9502

== ENCOUNTER 2022-10-11 13:57 | Emergency (ER) | payer OTHER ==
[~2022-10-11 13:57] MED LIST changes: -CATHETER FLUSH 10 ML SYR IVP PRN; -REGADENOSON 0.4 MG/5 ML SYR (LEXISCAN) IV ONE
[2022-10-11] MEDS ORDERED: CYCLOBENZAPRINE 10 MG (FLEXERIL) TAB PO STA (14:57)
--- NOTE | 2022-10-11 14:57 | ED Lower Extremity ---
General Chief Complaint: Lower Extremity Stated Complaint: RT LEG PAIN History of Present Illness Date Seen by Provider: Oct 11, 2022 Time Seen by Provider: 14:47 Initial Comments 62-year-old male with PMH of sciatica, is here with complaints of acute on chronic sciatica pain which is radiating down his right leg. 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 Patient states that his pain is mainly in his right buttock area which radiates down his leg. Denies back pain, bowel or bladder dysfunction, saddle anesthesia, numbness, injury or trauma Allergies and Home Medications Allergies Coded Allergies: No Known Drug Allergies (Unverified , 12/02/20) Patient Home Medication List Home Medication List Reviewed: Yes Aspirin (Aspirin EC) 81 Mg Tablet.dr, 81 MG PO DAILY Prescribed by: RAMIREZ JOHNSON on 12/03/20 1208 Atorvastatin Calcium (Atorvastatin Calcium) 80 Mg Tablet, 80 MG PO HS Prescribed by: RAMIREZ JOHNSON on 12/03/20 1208 Clopidogrel Bisulfate (Clopidogrel) 75 Mg Tablet, 75 MG PO DAILY Prescribed by: RAMIREZ JOHNSON on 12/03/20 1208 Lisinopril (Lisinopril) 10 Mg Tablet, 10 MG PO DAILY@0900 Prescribed by: RAMIREZ JOHNSON on 12/03/20 1208 Metoprolol Succinate (Toprol Xl) 100 Mg Tab.er.24h, 100 MG PO DAILY Prescribed by: RAMIREZ JOHNSON on 12/03/20 1208 Review of Systems Constitutional: no symptoms reported EENTM: no symptoms reported Respiratory: no symptoms reported Cardiovascular: no symptoms reported Gastrointestinal: no symptoms reported Genitourinary: no symptoms reported Musculoskeletal: see HPI, muscle pain Skin: no symptoms reported Psychiatric/Neurological: No Symptoms Reported Past Utzakgc-[id number]-Rluzvb Hx Patient Social History Tobacco Use?: No Use of E-Cig and/or Vaping dev: No Substance use?: No Alcohol Use?: No Seasonal Allergies Seasonal Allergies: No Past Medical History Surgery/Hospitalization HX: HTN DC-2 STENTS Surgeries: No Respiratory: No Cardiac: No Neurological: No Genitourinary: No Gastrointestinal: No Musculoskeletal: No Endocrine: No HEENT: No Cancer: No Psychosocial: No Integumentary: No Blood Disorders: No Adverse Reaction/Blood Tranf: No Physical Exam Vital Signs Vital Signs - First Documented 10/11/22 14:04 Temp 36.1 Pulse 104 Resp 16 B/P (MAP) 150/79 (102) Pulse Ox 99 O2 Delivery Room Air Capillary Refill : Height, Weight, BMI Height: '" Weight: lbs. oz. kg; 24.22 BMI Method: General Appearance: WD/WN, mild distress HEENT: PERRL/EOMI Neck: non-tender, full range of motion, supple Back: normal inspection, no vertebral tenderness Neurologic/Tendon: normal sensation, normal motor functions, other (Straight leg test positive, muscle spasm of piriformis muscle area present, no saddle anesthesia) Neurologic/Psychiatric: no motor/sensory deficits, alert, normal mood/affect, oriented x 3 Skin: normal color Progress/Results/Core Measures Results/Orders My Orders Orders - BÁRBARA PRITCHRAD MD Dexamethasone Injection (Decadron Inje (10/11/22 15:00) Ketorolac Injection (Toradol Injection) (10/11/22 15:00) Cyclobenzaprine Tablet (Flexeril Tablet) (10/11/22 14:57) Medications Given in ED Current Medications Medications Dose Ordered Sig/Lis Route Start Time Stop Time Status Last Admin Dose Admin Dexamethasone Sodium Phosphate 10 mg ONCE ONCE IM 10/11/22 15:00 10/11/22 15:01 DC 10/11/22 15:05 10 MG Ketorolac Tromethamine 30 mg ONCE ONCE IM 10/11/22 15:00 10/11/22 15:01 DC 10/11/22 15:05 30 MG Vital Signs/I&O 10/11/22 14:04 Temp 36.1 Pulse 104 Resp 16 B/P (MAP) 150/79 (102) Pulse Ox 99 O2 Delivery Room Air Progress Progress Note : Progress Note 1. PYRIFORMIS SYNDROME: SCIATICA, RIGHT SIDED - Toradol im/ Dexa 10mg im/ Flexeril stat in ER - Advised over the counter Lidoderm patches, Aleeve capsules 440mg every 12 hours, and extra strength Tylenol for breakthrough pain - Prescription given for Flexeril tid for 7 days -Advised gentle stretching of piriformis muscle, gentle massage, and heat application -Follow-up with PCP in the next 7 to 10 days -No red flags for cord compression -The patient was seen in the ED, and treated appropriately to presentation at a specific point in time. Patient is informed that there is a possibility that disease and illness can evolve and change in acuity rapidly or slowly after patient is discharged from the ER. Precautionary advice given to the patient for immediate return to ER if symptoms worsen or do not resolve, and to seek emergency care sooner rather than later. Pt also advised on the importance of PCP follow up and compliance with management and follow up plan with PCP and/or specialist, as this is part of the management plan. Pt verbally expressed understanding. Departure Impression Primary Impression: Pyriformis syndrome Qualified Codes: G57.01 - Lesion of sciatic nerve, right lower limb Additional Impression: Sciatic neuralgia Qualified Codes: M54.31 - Sciatica, right side Disposition: HOME, SELF-CARE Condition: Improved Departure-Patient Inst. Referrals: NO,LOCAL PHYSICIAN (PCP/Family) Primary Care Physician Patient Instructions: Sciatica ED, Sciatica Exercises Add. Discharge Instructions: - Advised over the counter Lidoderm patches, Aleeve capsules 440mg every 12 hours, and extra strength Tylenol for breakthrough pain - Prescription given for Flexeril tid for 7 days, Do not drive while taking this medication -Advised gentle stretching of piriformis muscle, gentle massage, and heat application -Follow-up with PCP in the next 7 to 10 days All discharge instructions reviewed with patient and/or family. Voiced understanding. Scripts Cyclobenzaprine HCl (Cyclobenzaprine HCl) 5 Mg Tablet 5 MG PO TID for 7 Days, #[address] taking this medication Prov: BÁRBARA PRITCHARD MD 10/11/22 Work/School Note: Work Release Form Date Seen in the Emergency Department: Oct 11, 2022 Return to Work: Oct 14, 2022 BÁRBARA PRITCHARD MD Oct 11, 2022 14:57
[2022-10-11] MEDS ORDERED: KETOROLAC 30 MG/ML VIAL IM ONE (15:00)
[2022-10-11] MEDS ORDERED: CYCL5TAB PO (15:39)
[2022-10-11 15:41] VITALS: BP 150/79
== END 2022-10-11 15:42 | disposition home or self-care (01) ==
LOC: EDUNIT# 13:57 → ER FS 13:59
DX: G57.01 Lesion of sciatic nerve, right lower limb (principal); G58.8 Other specified mononeuropathies; Z28.310 Unvaccinated for COVID-19
CPT/HCPCS: 99284

== ENCOUNTER 2023-05-22 12:47 | Emergency (ER) | payer SELFPAY ==
[~2023-05-22 12:47] MED LIST changes: +CYCL5TAB PO
--- NOTE | 2023-05-22 13:38 | ED General ---
General Chief Complaint: General Problems/Pain Nursing Triage Note: PT SENT FROM [facility] FOR GALLSTONES FROM HIS CT HE HAD DONE YESTERDAY. PT IS NOT SURE WHY THEY SENT HIM TO THE ER. HE DENIES ABDOMINAL PAIN OR ANY OTHER SYMPTOMS. Source of Information: Patient History of Present Illness Date Seen by Provider: May 22, 2023 Time Seen by Provider: 12:58 Initial Comments 62 yo male presenting to the emergency department due to concerns from the [facility] [place] clinic. He was recently diagnosed with diabetes and started on medication for that this month. He also was noted to have an elevated bilirubin to 2.9 when he was seen on April 30. His direct bilirubin was 0.5 and indirect 2.4. He had an ultrasound showing dilated gallbladder. A CT scan was ordered and performed yesterday. On the CT scan it had shown that he had gallstones and dilated gallbladder but no cholecystitis findings. He has also had some mild intrahepatic biliary ductal dilatation. Radiologist recommended that he could have an MRI with an MRCP performed to further evaluate that. Patient himself says that he is not having any pain, nausea, vomiting, abdominal pain, jaundice, fever. He was told to perez to the closest hospital and when he went: This morning they did not know anything about him coming. He then was told to go to [place] or [place] and came to [place]. From review of paperwork including an office visit with Dr. Rosas on April [address] scan report from May 21 it appeared that he had been having elevated bilirubin levels and they were working up with ultrasound and CT. I did speak with EDI Mulligan, the nurse for Dr. Albert at the [facility]. She advised me that Dr. Bateman had reviewed the CT report from this am and was concerned he might have a stone causing obstruction and dilation of the ducts and had asked the nurses to have the patient go to be evaluated. He currently has no complaints and is only here because he was told to come to be seen. Associated Systoms: No Chest Pain, No Cough, No Diaphoresis, No Fever/Chills, No Headaches, No Loss of Appetite, No Malaise, No Nausea/Vomiting, No Rash, No Seizure, No Shortness of Air, No Syncope, No Weakness Allergies and Home Medications Allergies Coded Allergies: No Known Drug Allergies (Unverified , 12/02/20) Patient Home Medication List Home Medication List Reviewed: Yes Aspirin (Aspirin EC) 81 Mg Tablet.dr, 81 MG PO DAILY Prescribed by: RAMIREZ JOHNSON on 12/03/20 1208 Atorvastatin Calcium (Atorvastatin Calcium) 80 Mg Tablet, 80 MG PO HS Prescribed by: RAMIREZ JOHNSON on 12/03/20 1208 Clopidogrel Bisulfate (Clopidogrel) 75 Mg Tablet, 75 MG PO DAILY Prescribed by: RAMRIEZ JOHNSON on 12/03/20 1208 Cyclobenzaprine HCl (Cyclobenzaprine HCl) 5 Mg Tablet, 5 MG PO TID Prescribed by: BÁRBARA PRITCHARD MD on 10/11/22 1539 Lisinopril (Lisinopril) 10 Mg Tablet, 10 MG PO DAILY@0900 Prescribed by: RAMIREZ JOHNSON on 12/03/20 1208 Metoprolol Succinate (Toprol Xl) 100 Mg Tab.er.24h, 100 MG PO DAILY Prescribed by: RAMIREZ JOHNSON on 12/03/20 1208 Review of Systems Review of Systems Constitutional: No chills, No fever EENTM: no symptoms reported Respiratory: no symptoms reported Cardiovascular: no symptoms reported Gastrointestinal: No abdominal pain, No jaundice, No loss of appetite, No melena, No nausea, No vomiting Genitourinary: no symptoms reported Musculoskeletal: no symptoms reported Skin: no symptoms reported Psychiatric/Neurological: No Symptoms Reported Hematologic/Lymphatic: No Symptoms Reported Past Bjsksmu-Yswhja-Hpdzsw Hx Patient Social History Tobacco Use?: No Use of E-Cig and/or Vaping dev: No Substance use?: No Alcohol Use?: No Pt feels they are or have been: No Seasonal Allergies Seasonal Allergies: No Past Medical History Surgery/Hospitalization HX: HTN, Diabetes Mellitus NIDDM CO-2 STENTS Surgeries: No Respiratory: No Cardiac: No Neurological: No Genitourinary: No Gastrointestinal: No Musculoskeletal: No Endocrine: No HEENT: No Cancer: No Psychosocial: No Integumentary: No Blood Disorders: No Adverse Reaction/Blood Tranf: No Physical Exam Vital Signs Vital Signs - First Documented 05/22/23 12:52 Temp 36.4 Pulse 95 Resp 16 B/P (MAP) 136/88 (104) Pulse Ox 96 O2 Delivery Room Air Capillary Refill : Less Than 3 Seconds Height, Weight, BMI Height: '" Weight: lbs. oz. kg; 24.22 BMI Method: General Appearance: No Apparent Distress, WD/WN HEENT: PERRL/EOMI; No Scleral Icterus (L), No Scleral Icterus (R) Neurologic/Psychiatric: Alert, Oriented x3 Skin: Normal Color, Warm/Dry Progress/Results/Core Measures Suspected Sepsis SIRS Temperature: Pulse: 95 Respiratory Rate: 16 Blood Pressure 136 /88 Mean: 104 Results/Orders Vital Signs/I&O 05/22/23 05/22/23 12:52 13:53 Temp 36.4 36.4 Pulse 95 95 Resp 16 16 B/P (MAP) 136/88 (104) 136/88 Pulse Ox 96 96 O2 Delivery Room Air Room Air Capillary Refill : Less Than 3 Seconds Blood Pressure Mean: 104 Progress Note : Progress Note This patient is not having any pain, jaundice, fever, chills, abdominal pain, nausea, vomiting or signs and symptoms of biliary ductal obstruction and was not showing signs of cholecystitis or infection on his CT scan from yesterday, I checked with Dr. Nevarez about having the patient follow-up in the clinic. He was in surgery when I called his phone but he said that he could see the patient on Thursday in the clinic. I also spoke to EDI Mulligan for Dr. Alvarado out of the [facility] clinic to get information about why the patient was sent here. See the [facility] for that. I updated the patient and we did make an appointment for [address] Nevarez. I advised him that appointment he could review the CT and test results to discuss treatment options such as possible cholecystectomy or dietary changes or additional imaging. Patient reported that he may need to change that appointment and he does have the office number so that he could call and make at a time that was more convenient for him if needed. In the meantime counseled on return precautions of abdominal pain, fever, chills, nausea, vomiting, jaundice would all be reasons to be seen emergently as he may need to be admitted or sent to hospital if that was the case. Departure Impression Primary Impression: Cholelithiasis Qualified Codes: K80.20 - Calculus of gallbladder without cholecystitis without obstruction Additional Impression: Intrahepatic bile duct dilation Disposition: 01 HOME, SELF-CARE Condition: Stable Departure-Patient Inst. Decision time for Depature: 13:44 Referrals: [facility] [place] [facility] [place] (PCP/Family) Primary Care Physician KIMBERLY NEVAREZ DO Patient Instructions: Gallbladder Diet, Gallstones ED Add. Discharge Instructions: You have an appointment for 2:15 pm on ThursdayMay [address] Nevarez. If this time does not work for you, call the clinic and see when they can reschedule you to a more convenient time for you to see Dr. Nevarez to discuss your options for further treatment If you have abdominal pain, nausea, vomiting, fever over 101 F or develop yellow color to your skin and eyes then you should be seen in the Emergency Department for additional testing as you may need to be admitted or sent to a Hospital. Follow a low fat bland diet to help avoid flaring up the gallbladder and gallstones. All discharge instructions reviewed with patient and/or family. Voiced understanding. Copy Copies To 1: KIMBERLY NEVAREZ MARC E MD May 22, 2023 13:38
[2023-05-22 13:53] VITALS: BP 136/88
== END 2023-05-22 14:04 | disposition home or self-care (01) ==
LOC: EDUNIT# 12:47 → ER FS 12:50
DX: K80.20 Calculus of gallbladder without cholecystitis without obstruction (principal); E11.9 Type 2 diabetes mellitus without complications; K83.8 Other specified diseases of biliary tract
CPT/HCPCS: 99281